=== PATIENT | male | born 1935 | race Caucasian/White ===

== ENCOUNTER 2018-04-14 18:30 | Inpatient (IN) | payer OTHER ==
[2018-04-14 18:42] VITALS: BMI 21.9
[2018-04-14] MEDS ORDERED: DUONEB 0.5 MG/3 MG NEB ONE (19:50)
--- NOTE | 2018-04-14 19:51 | DR.GENAD ---
HPI - PCP Primary Care Physician: VIOLA - Complaint/Symptoms Chief Complaint Doctors Comments: Patient presented to the ED for evalaution of dyspnea of acute onset. He is a dialysis patient. Chief Complaint:: SHORT OF BREATH - Source History Provided: Patient, Family Member - Mode of Arrival Mode of Arrival: Wheelchair - Timing Onset of Chief Complaint: 04/13/18 PMH - PMH Past Medical History: Yes Past Medical History: COPD, CVA, Depression, Dialysis, Hypertension, Renal Disease Past Surgical History: No - Family History History of Family Medical Conditions: Yes Family Medical History: [place], Heart Failure, Hypertension - Social History Does patient currently use any type of tobacco product: No Have you used tobacco products in the last 12 months: No Type of Tobacco Use: Cigarettes Does any household member use tobacco: No Alcohol Use: None Do you use any recreational Drugs:: No Lives With: Family Lives Where: Home - infectious screening In the last 2 months have you had wt loss of >10#?: NO Have you had fever, night sweats or hemotysis?: No Have you traveled outside the country in the last 6 months?: No Isolation: Standard ROS - Review of Systems Eyes: No Symptoms Reported ENTM: No Symptoms Reported Respiratoy: No Symptoms Reported Cardiovascular: No Symptoms Reported Gastrointestinal/Abdominal: No Symptoms Reported Genitourinary: No Symptoms Reported Neurological: No Symptoms Reported Musculoskeletal: No Symptoms Reported Integumentary: No Symptoms Reported Hematologic/Lymphatic: No Symptoms Reported Endocrine: No Symptoms Reported Psychiatric: No Symptoms Reported All Other Systems: Reviewed and Negative PE - Vital Signs Vitals: Temperature 101.1 F Pulse Rate 81 Respiratory Rate 20 Blood Pressure 177/79 O2 Sat by Pulse Oximetry 97 - General General Appearance: Alert, In No Apparent Distress - Head Head Exam: Normal Inspection, Atraumatic - Eyes Eye exam: Normal Appearance, PERRL, EOMI - ENT ENT Exam: Normal Exam, Normal Oropharynx External Ear Exam: Normal External Inspection TM/Canal Exam: Bilateral Normal Nose Exam: Normal Nose Exam Mouth Exam: Normal Inspection Throat Exam: Normal Inspection - Neck Neck Exam: Normal Inspection - Chest Chest Inspection: Normal Inspection - Respiratory Respiratory Exam: Prolonged Expiratory Phase Respiratory Exam: Bilateral Clear to Auscultation - Cardiovascular Cardiovascular Exam: Regular Rate, Normal Rhythm - Abdominal Exam Abdominal Exam: Normal Inspection, Normal Bowel Sounds Abdominal Tenderness: negative: RUQ, RLQ, LUQ, LLQ, Epigastrium, Suprapubic, Diffuse, Mild, Moderate, Severe, Other - Extremities Extremities Exam: Normal Inspection - Back Back Exam: Normal Inspection - Neurologic Neurological Exam: Alert, Oriented X3, CN II-XII Intact - Psychiatric Psychiatric Exam: Normal Affect - Skin Skin Exam: Warm, Dry, Intact Course - Reevaluation 1st: Improved - Consultation Called: 21:15 (Dr Gabriel agreed to admit for further evaluation) ROR - Labs Reviewed Laboratory Results Reviewed?: Yes (D Dimer 1430) Result Diagrams: 04/14/18 20:01 04/14/18 20:01 Laboratory: WBC 9.6 X10^3/uL (3.6-10.0) 04/14/18 20:01 RBC 3.33 X10^6/uL (4.7-6.0) L 04/14/18 20:01 Hgb 11.1 g/dL (13.5-18.0) L 04/14/18 20:01 Hct 31.9 % (42.0-54.0) L 04/14/18 20:01 MCV 95.8 fL (80.0-100.0) 04/14/18 20:01 MCH 33.4 pg (27.0-34.0) 04/14/18 20:01 MCHC 34.9 g/dL (33.0-35.0) 04/14/18 20:01 RDW 14.5 % (11.6-16.5) 04/14/18 20:01 Plt Count 237 X10^3/uL (150.0-450.0) 04/14/18 20:01 MPV 8.3 fL (7.4-11.0) 04/14/18 20:01 Neut % (Auto) 77.8 % (42.0-75.0) H 04/14/18 20:01 Lymph % (Auto) 10.7 % (21.0-51.0) L 04/14/18 20:01 [place] % (Auto) 9.1 % (0.0-13.0) 04/14/18 20:01 Eos % (Auto) 1.2 % (0.9-2.9) 04/14/18 20:01 Baso % (Auto) 1.2 % (0.2-1.0) H 04/14/18 20:01 Neut # (Auto) 7.5 x10^3/uL (2.2-4.8) H 04/14/18 20:01 Lymph # (Auto) 1.0 X10^3/uL (1.3-2.9) L 04/14/18 20:01 [place] # (Auto) 0.9 x10^3/uL (0.3-0.8) H 04/14/18 20:01 Eos # (Auto) 0.1 x10^3/uL (0.0-0.2) 04/14/18 20:01 Baso # (Auto) 0.1 X10^3/uL (0.0-0.1) 04/14/18 20:01 Absolute Nucleated RBC 0.0 /100WBC 04/14/18 20:01 D-Dimer 1430 ng/mL (0-400) H* 04/14/18 20:01 Sodium 137 mmol/L (136-145) 04/14/18 20:01 Corrected Sodium TNP 04/14/18 20:01 Potassium 4.7 mmol/L (3.5-5.1) 04/14/18 20:01 Chloride 102 mmol/L (98-107) 04/14/18 20:01 Carbon Dioxide 27.2 mmol/L (21-32) 04/14/18 20:01 BUN 42 mg/dL (7-18) H 04/14/18 20:01 Creatinine 5.89 mg/dL (0.70-1.30) H 04/14/18 20:01 Est GFR (MDRD) Af Amer 12 (>60) L 04/14/18 20:01 Est GFR (MDRD) Non-Af 10 (>60) L 04/14/18 20:01 Glucose 105 mg/dL (65-99) H 04/14/18 20:01 Calcium 8.2 mg/dL (8.5-10.1) L 04/14/18 20:01 Corrected Calcium TNP 04/14/18 20:01 Total Bilirubin 0.40 mg/dL (0.2-1.0) 04/14/18 20:01 AST 12 Units/L (15-37) L 04/14/18 20:01 ALT 16 Units/L (12-78) 04/14/18 20:01 Alkaline Phosphatase 75 Units/L (46-116) 04/14/18 20:01 Total Protein 7.5 g/dL (6.4-8.2) 04/14/18 20:01 Albumin 3.7 g/dL (3.4-5.0) 04/14/18 20:01 Globulin 3.8 g/dL (2.5-4.5) 04/14/18 20:01 Albumin/Globulin Ratio 1.0 Ratio (1.1-2.1) L 04/14/18 20:01 - XRAY XRAY Interpreted by: Radiologist (Chest: No acute cardiopulmonary abnormality) - Diagnosis Discharge Problem: COPD (chronic obstructive pulmonary disease) Qualifiers: COPD type: COPD with acute exacerbation Qualified Code(s): J44.1 - Chronic obstructive pulmonary disease with (acute) exacerbation Renal failure Qualifiers: Renal failure chronicity: chronic Chronic kidney disease stage: stage 5, not on chronic dialysis Qualified Code(s): N18.5 - Chronic kidney disease, stage 5 - Discharge Plan Condition: Stable - Follow ups/Referrals Follow ups/Referrals: NFD,None [Primary Care Provider] - 3 days - Instructions
[2018-04-14 20:14] LABS: BASOPHILS # (AUTO) 0.1 X10^3/uL (0.0-0.1); BASOPHILS % (AUTO) 1.2 % (0.2-1.0); EOSINOPHILS # (AUTO) 0.1 x10^3/uL (0.0-0.2); EOSINOPHILS % (AUTO) 1.2 % (0.9-2.9); HEMATOCRIT 31.9 % (42.0-54.0); HEMOGLOBIN 11.1 g/dL (13.5-18.0); LYMPHOCYTES % (AUTO) 10.7 % (21.0-51.0); MEAN CORPUSCULAR HEMOGLOBIN 33.4 pg (27.0-34.0); MEAN CORPUSCULAR HGB CONC 34.9 g/dL (33.0-35.0); MEAN CORPUSCULAR VOLUME 95.8 fL (80.0-100.0); MEAN PLATELET VOLUME 8.3 fL (7.4-11.0); MONOCYTES # (AUTO) 0.9 x10^3/uL (0.3-0.8); MONOCYTES % (AUTO) 9.1 % (0.0-13.0); NEUTROPHILS # (AUTO) 7.5 x10^3/uL (2.2-4.8); NEUTROPHILS % (AUTO) 77.8 % (42.0-75.0); PLATELET COUNT 237 X10^3/uL (150.0-450.0); RED BLOOD COUNT 3.33 X10^6/uL (4.7-6.0); RED CELL DISTRIBUTION WIDTH 14.5 % (11.6-16.5); WHITE BLOOD COUNT 9.6 X10^3/uL (3.6-10.0)
[2018-04-14 20:23] LABS: ALANINE AMINOTRANSFERASE 16 Units/L (12-78); ALBUMIN 3.7 g/dL (3.4-5.0); ALKALINE PHOSPHATASE 75 Units/L (46-116); ASPARTATE AMINO TRANSFERASE 12 Units/L (15-37); BLOOD UREA NITROGEN 42 mg/dL (7-18); CALCIUM 8.2 mg/dL (8.5-10.1); CARBON DIOXIDE 27.2 mmol/L (21-32); CHLORIDE 102 mmol/L (98-107); CREATININE 5.89 mg/dL (0.70-1.30); SODIUM 137 mmol/L (136-145); TOTAL PROTEIN 7.5 g/dL (6.4-8.2); eGFR BLACK RACES 12 (>60); eGFR NON BLACK RACES 10 (>60)
--- NOTE | 2018-04-14 20:25 | RAD ---
AP Chest Indication: shortness of breath Comparison: none available Findings: The trachea is midline. The cardiac silhouette is unremarkable. The lungs are clear without focal i nfiltrate or effusion. The bony thorax is unremarkable. IMPRESSION: 1. No acute cardiopulmonary abnormality. Reported By:
[2018-04-14] MEDS ORDERED: SOLU-Medrol 125 MG VIAL IVP ONE (22:32)
[2018-04-14] MEDS ORDERED: NS 100 ML IV + SPIKE MINIBAG* 100 ML IV ONE (22:44)
[2018-04-14] MEDS ORDERED: FORTAZ or TAZICEF INJ ONE (22:44)
[2018-04-14] MEDS ORDERED: FORTAZ or TAZICEF INJ 1 GM in NS 50 ML IV + SPIKE MINIBAG* 50 ML IV SCH (23:00)
[2018-04-15] MEDS: DUONEB 0.5 MG/3 MG NEB SCH ×6 (01:01→21:10)
[2018-04-15] MEDS ORDERED: DUONEB 0.5 MG/3 MG ONE (05:05)
[2018-04-15 06:23] LABS: BASOPHILS % (AUTO) 0.1 % (0.2-1.0); HEMOGLOBIN 10.6 g/dL (13.5-18.0); LYMPHOCYTES # (AUTO) 0.4 X10^3/uL (1.3-2.9); LYMPHOCYTES % (AUTO) 4.7 % (21.0-51.0); MEAN CORPUSCULAR HEMOGLOBIN 33.8 pg (27.0-34.0); MEAN CORPUSCULAR HGB CONC 35.3 g/dL (33.0-35.0); MEAN CORPUSCULAR VOLUME 95.9 fL (80.0-100.0); MEAN PLATELET VOLUME 8.4 fL (7.4-11.0); MONOCYTES # (AUTO) 0.1 x10^3/uL (0.3-0.8); MONOCYTES % (AUTO) 0.9 % (0.0-13.0); NEUTROPHILS # (AUTO) 7.3 x10^3/uL (2.2-4.8); NEUTROPHILS % (AUTO) 94.3 % (42.0-75.0); PLATELET COUNT 201 X10^3/uL (150.0-450.0); RED BLOOD COUNT 3.13 X10^6/uL (4.7-6.0); RED CELL DISTRIBUTION WIDTH 14.4 % (11.6-16.5); WHITE BLOOD COUNT 7.7 X10^3/uL (3.6-10.0)
[2018-04-15 06:49] LABS: ALBUMIN 3.2 g/dL (3.4-5.0); CALCIUM 8.1 mg/dL (8.5-10.1); CARBON DIOXIDE 24.9 mmol/L (21-32); COR CA(FOR HYPOALB) 8.7 mg/dL (8.5-10.1); CREATININE 6.35 mg/dL (0.70-1.30); TOTAL PROTEIN 6.9 g/dL (6.4-8.2)
[2018-04-15 06:56] LABS: HYPOCHROMASIA SLIGHT; PLATELET MORPHOLOGY COMMENT NORMAL (NORMAL)
[2018-04-15] MEDS ORDERED: PROVENTIL NEB TX 0.083% 2.5MG/ 3ML NEB PRN (08:29)
[2018-04-15] MEDS: ASPIRIN EC 81 MG PO SCH (10:35)
[2018-04-15] MEDS: HYZAAR 50/12.5 MG PO SCH (10:35)
[2018-04-15] MEDS: NORVASC TAB 10 MG PO SCH (10:35)
--- NOTE | 2018-04-15 10:35 | RAD ---
HISTORY: Shortness of breath Study: Chest PA and lateral Comparison: 04/14/2018 Findings: The heart is within normal limits in size. The sandee are normal. The lungs are hyperinflated but free of acute alveolar infiltrates. No pleural effusions are identified. Mild interstitial lung changes ar e present. The bony thorax is unremarkable. IMPRESSION: Lungs hyperinflated but free of acute alveolar infiltrates Mild interstitial lung changes Reported By:
[2018-04-15] MEDS: ZOLOFT PO SCH (10:36)
--- NOTE | 2018-04-15 10:47 | NM ---
HISTORY: Shortness of breath Study: Ventilation-perfusion lung scan Comparison: Chest x-ray same date Technique: Ventilation scan was carried out using 30.4 mCi technetium 99 M DTPA aerosol. Perfusion sc an was carried out using intravenous injection of 5.4 mCi technetium 99 MAA. Findings: Ventilation scan demonstrated scattered nonsegmental ventilation defects. No segmental or lobar venti lation defects were identified. Perfusion scan demonstrated symmetric profusion with no significant s ubsegmental, segmental, or lobar perfusion defects. The probability of acute pulmonary thromboembolic disease is low. IMPRESSION: Low probability acute pulmonary thromboembolic disease Reported By:
[2018-04-15] MEDS: PATIENT'S HOME MEDICATION (Sevelamer Carbonate [Renvela Tablet] 800 MG) PO SCH ×2 (14:06→22:21)
[2018-04-15] MEDS ORDERED: FORTAZ OR TAZICEF IV SCH (21:00)
[2018-04-15] MEDS ORDERED: NS IV SCH (21:00)
[2018-04-15] MEDS ORDERED: SPIKE MINIBAG IV SCH (21:00)
[2018-04-16] MEDS: DUONEB 0.5 MG/3 MG NEB SCH ×2 (01:01→05:22)
[2018-04-16] MEDS ORDERED: DUONEB 0.5 MG/3 MG NEB PRN (05:28)
[2018-04-16] MEDS: PATIENT'S HOME MEDICATION (Sevelamer Carbonate [Renvela Tablet] 800 MG) PO SCH (05:42)
[2018-04-16 07:33] LABS: ALANINE AMINOTRANSFERASE 15 Units/L (12-78); ALKALINE PHOSPHATASE 54 Units/L (46-116); ASPARTATE AMINO TRANSFERASE 21 Units/L (15-37); BLOOD UREA NITROGEN 45 mg/dL (7-18); CALCIUM 7.6 mg/dL (8.5-10.1); CARBON DIOXIDE 28.7 mmol/L (21-32); CHLORIDE 105 mmol/L (98-107); COR CA(FOR HYPOALB) 8.4 mg/dL (8.5-10.1); CREATININE 5.33 mg/dL (0.70-1.30); SODIUM 145 mmol/L (136-145); TOTAL PROTEIN 6.4 g/dL (6.4-8.2); eGFR BLACK RACES 13 (>60); eGFR NON BLACK RACES 11 (>60)
[2018-04-16 08:05] LABS: BASOPHILS % (AUTO) 0.2 % (0.2-1.0); HEMATOCRIT 26.9 % (42.0-54.0); HEMOGLOBIN 9.4 g/dL (13.5-18.0); LYMPHOCYTES # (AUTO) 0.9 X10^3/uL (1.3-2.9); LYMPHOCYTES % (AUTO) 8.1 % (21.0-51.0); MEAN CORPUSCULAR HEMOGLOBIN 33.5 pg (27.0-34.0); MEAN CORPUSCULAR HGB CONC 34.8 g/dL (33.0-35.0); MEAN CORPUSCULAR VOLUME 96.2 fL (80.0-100.0); MONOCYTES # (AUTO) 0.9 x10^3/uL (0.3-0.8); MONOCYTES % (AUTO) 8.3 % (0.0-13.0); NEUTROPHILS # (AUTO) 9.4 x10^3/uL (2.2-4.8); NEUTROPHILS % (AUTO) 83.4 % (42.0-75.0); PLATELET COUNT 202 X10^3/uL (150.0-450.0); RED CELL DISTRIBUTION WIDTH 14.8 % (11.6-16.5); WHITE BLOOD COUNT 11.2 X10^3/uL (3.6-10.0)
[2018-04-16 08:38] VITALS: BP 151/55
[2018-04-16] MEDS: ASPIRIN EC 81 MG PO SCH (08:40)
[2018-04-16] MEDS: NORVASC TAB 10 MG PO SCH (08:41)
[2018-04-16] MEDS: HYZAAR 50/12.5 MG PO SCH (08:41)
[2018-04-16] MEDS: ZOLOFT PO SCH (08:41)
--- NOTE | 2018-04-18 00:21 | DR.H&P ---
H&P - History & Physical for Day of: H&P Date: 04/14/18 - Chief Complaint Chief Complaint: SHORT OF BREATH - Allergies Allergies/Adverse Reactions: Allergies Allergy/AdvReac Type Severity Reaction Status Date / Time No Known Drug Allergies Allergy Verified 04/15/18 00:19 - History of Present Illness History of Present Illness: IS A 82 YEAR OLD PATIENT OF WHO PRESENTED TO THE EMERGENCY ROOM WITH COMPLAINTS OF SHORTNESS OF BREATH. PATIENT REPORTS THAT SYMPTOMS BEGAN YESTERDAY AND HAS PROGRESSIVELY GOTTEN WORSE. HE REPORTS A HISTORY OF RENAL FAILURE WITH THE NEED FOR DIALYSIS AND COPD. ON ARRIVAL, VITALS WERE 101.1, 81, 20, 97%, 177/79. LABS WERE OBTAINED. ABNORMAL LAB VALUES INCLUDE THE FOLLOWING: RBC 3.33, HGB 11.1, HCT 31.9, D DIMER 1430, BUN 42, CREATININE 5.89, GLUCOSE 105, CALCIUM 8.2, AST 12. BLOOD CULTURES PENDING. A CHEST XRAY WAS OBTAINED AND REVEALED NO ACUTE CARDIOPULMONARY ABNORMALITY. EKG REVELED SINUS RHYTHM WITH HR 67. PATIENT WAS GIVEN A DUONEB X 1 AND SOLU-MEDROL 125MG IV X 1 WITH NO IMPROVEMENT IN SYMPTOMS. HE WAS ADMITTED TO THE HOSPITAL FOR FURTHER EVALUATION AND TREATMENT. WE PLAN TO OBTAIN A VQ SCAN IN THE MORNING. HE WAS STARTED ON FORTAZ 1GM IV Q8H , DUONEBS Q4H, AND HOME MEDICATIONS WERE RESUMED. WE PLANNED TO FOLLOW UP WITH AM LABS AND CONTINUE TO MONTIOR PATIENT. - Past Medical History Past Medical History: COPD, CVA, Depression, Dialysis, Hypertension, Renal Disease - Family History Family Medical History: [place], Heart Failure - Social History Does patient currently use any type of tobacco product: No Have you used tobacco products in the last 12 months: No Type of Tobacco Use: Cigarettes How many years tobacco product used: 60 Does any household member use tobacco: No Alcohol Use: None Drug Use: None - Medications Home Medications: Albuterol Neb 2.5MG/ 3Ml [ALBUTEROL NEB 2.5MG/ 3ML *] 1 inh NEB Q4H PRN [History Confirmed 04/15/18] Amlodipine Besylate 10 mg PO DAILY 04/14/18 [History Confirmed 04/14/18] Aspirin [Adult Low Dose Aspirin EC] 81 mg PO DAILY 04/14/18 [History Confirmed 04/15/18] Losartan Potassium & Hydrochlo [HYZAAR 50/12.5 MG *] 0.5 tab PO DAILY 04/14/18 [ History Confirmed 04/14/18] Sertraline HCl [Zoloft 25 mg] 1 tab PO QAM 04/14/18 [History Confirmed 04/14/18] Sevelamer Carbonate [Renvela tablet] 800 mg PO TID 04/14/18 [History Confirmed 04/15/18] - Review of Systems Constitutional: Weakness Eyes: No Symptoms Reported ENT: No Symptoms Reported Respiratory: Shortness of Breath, SOB with Excertion. denies: Hemoptysis, Sputum, Wheezing Cardiovascular: No Symptoms Reported Gastrointestinal: No Symptoms Reported Genitourinary: No Symptoms Reported Musculoskeletal: No Symptoms Reported Skin: No Symptoms Reported Neurological: No Symptoms Reported - Physical Exam Vital Signs: Temperature 98.1 F Pulse Rate [Right] 85 Pulse Rate 90 Respiratory Rate 18 Blood Pressure [Right Arm] 151/55 Blood Pressure 177/79 O2 Sat by Pulse Oximetry 100 Oriented: Normal Eyes: Normal Ear: Normal Nose: Normal Throat: Normal Respiratory: Diminished Throughout Cardiovascular: Normal : Normal Auscultation: Bowel Sounds: Normal Palpation: Normal Tenderness: Normal Skin: Normal Musculoskeletal: Normal Psychiatric: Normal Mood Description: Calm Affect: Normal Speech Pattern: Clear - Assessment/Plan (1) Shortness of breath Status: Acute (2) COPD (chronic obstructive pulmonary disease) Qualifiers: COPD type: COPD with acute exacerbation Qualified Code(s): J44.1 - Chronic obstructive pulmonary disease with (acute) exacerbation Status: Acute (3) Renal failure Qualifiers: Renal failure chronicity: chronic Chronic kidney disease stage: stage 5, not on chronic dialysis Qualified Code(s): N18.5 - Chronic kidney disease, stage 5 Status: Acute
== END 2018-04-16 08:50 | disposition home health service (06) | DRG 191 ==
LOC: ER 19:13 → OBS 22:30
PROVIDERS: ADMIT Internal Medicine; ATTEND Internal Medicine
DX: J44.1 Chronic obstructive pulmonary disease with (acute) exacerbation (principal); R06.02 Shortness of breath; Z99.2 Dependence on renal dialysis; N18.5 Chronic kidney disease, stage 5; R94.31 Abnormal electrocardiogram [ECG] [EKG]; Z66 Do not resuscitate; R79.1 Abnormal coagulation profile; R94.4 Abnormal results of kidney function studies
CPT/HCPCS: 36415; 71045; 71046; 78582; 80053; 85025; 85378; 87040; 93005; 94640; 94760; 96365; 96374; 99284; A4222; A9540; A9567; J0713; J2930; J7620

== ENCOUNTER 2019-01-02 18:59 | Inpatient (IN) ==
[2019-01-02] MEDS ORDERED: DUONEB 0.5 MG/3 MG ONE (19:07)
[2019-01-02 19:21] LABS: ABG BASE EXCESS 9.2 mmol/L (-2.0-2.0); ABG HCO3 32.6 mmol/L (22-26)
[2019-01-02 19:22] LABS: ABG ALLEN TEST POS
[2019-01-02] MEDS ORDERED: DUONEB 0.5 MG/3 MG NEB ONE (19:22)
[2019-01-02] MEDS ORDERED: SOLU-Medrol 125 MG VIAL ONE (19:40)
[2019-01-02] MEDS ORDERED: SOLU-Medrol 125 MG VIAL IVP ONE (19:40)
[2019-01-02 19:44] LABS: BASOPHILS # (AUTO) 0.1 X10^3/uL (0.0-0.1); BASOPHILS % (AUTO) 0.6 % (0.2-1.0); EOSINOPHILS % (AUTO) 0.1 % (0.9-2.9); HEMATOCRIT 32.4 % (42.0-54.0); HEMOGLOBIN 11.2 g/dL (13.5-18.0); LYMPHOCYTES # (AUTO) 0.5 X10^3/uL (1.3-2.9); LYMPHOCYTES % (AUTO) 3.9 % (21.0-51.0); MEAN CORPUSCULAR HEMOGLOBIN 33.3 pg (27.0-34.0); MEAN CORPUSCULAR HGB CONC 34.5 g/dL (33.0-35.0); MEAN CORPUSCULAR VOLUME 96.5 fL (80.0-100.0); MEAN PLATELET VOLUME 7.8 fL (7.4-11.0); MONOCYTES # (AUTO) 1.3 x10^3/uL (0.3-0.8); MONOCYTES % (AUTO) 10.6 % (0.0-13.0); NEUTROPHILS # (AUTO) 10.7 x10^3/uL (2.2-4.8); NEUTROPHILS % (AUTO) 84.8 % (42.0-75.0); PLATELET COUNT 322 X10^3/uL (150.0-450.0); RED BLOOD COUNT 3.35 X10^6/uL (4.7-6.0); RED CELL DISTRIBUTION WIDTH 14.9 % (11.6-16.5); WHITE BLOOD COUNT 12.6 X10^3/uL (3.6-10.0)
[2019-01-02 19:54] LABS: ALBUMIN 3.2 g/dL (3.4-5.0); CALCIUM 8.9 mg/dL (8.5-10.1); CARBON DIOXIDE 30.9 mmol/L (21-32); COR CA(FOR HYPOALB) 9.5 mg/dL (8.5-10.1); CREATININE 3.91 mg/dL (0.70-1.30); TOTAL PROTEIN 7.7 g/dL (6.4-8.2)
--- NOTE | 2019-01-02 20:28 | RAD ---
Chest 1 frontal view Clinical indication: Shortness of breath, chest congestion and cough Findings: The study is compared to the exam of 04/15/2018. The lungs are hyperexpanded with flattened diaphragmatic contours. Interval development of bilateral interstitial infiltrates are observed involving the bilateral lower lung zones, most evident within the right lower lobe. There is associated with bronchial wall thickening. The heart size is within normal limits. Pulmonary artery shadows are enlarged. Impression: Interstitial bronchopneumonia pattern. This may be associated with a viral or atypical organism infection. Radiographic follow-up recommended until clear. Radiographic features of chronic obstructive pulmonary disease. Enlarged pulmonary artery shadows may be associated with pulmonary artery hypertension. Reported By:
[2019-01-02] MEDS ORDERED: ROCEPHIN VIAL 1 GRAM IVP ONE (21:47)
[2019-01-02] MEDS ORDERED: ROCEPHIN VIAL 1 GRAM ONE (21:54)
--- NOTE | 2019-01-02 22:02 | DR.SOBA ---
HPI Time Seen Time Seen by Provider: 01/02/19 19:12 Primary Care Physician Primary Care Physician: jess Complaints Chief Complaint:: PT HAVING SOB CONGESTION COUGHING Source History Provided: Patient Mode of Arrival Mode of Arrival: Wheelchair Timing Onset of Chief Complaint: 01/01/19 PMH PMH Past Medical History: Yes Past Medical History: COPD, CVA, Depression, Dialysis, Hypertension and Renal Disease Past Surgical History: Yes Past Surgical History Comment: AV SHUNT IN LT UPPER ARM EYE SURGERY Family History History of Family Medical Conditions: Yes Family Medical History: [place] and Heart Failure Social History Does patient currently use any type of tobacco product: No Have you used tobacco products in the last 12 months: No Does any household member use tobacco: No Alcohol Use: None Do you use any recreational Drugs:: No Lives With: Family Lives Where: Home infectious screening In the last 2 months have you had wt loss of >10#?: NO Have you had fever, night sweats or hemotysis?: No Have you traveled outside the country in the last 6 months?: No Isolation: Standard PE Vital Signs Vitals: Temperature 98.9 F Pulse Rate [Right Brachial] 68 Pulse Rate 88 Respiratory Rate 26 Blood Pressure [Right Arm] 165/70 Blood Pressure 213/86 O2 Sat by Pulse Oximetry 91 General Limitations: No Limitations General Appearance: Alert and In No Apparent Distress Head Head Exam: Normal Inspection, Atraumatic and Normocephalic Eyes Eye exam: Normal Appearance, PERRL and EOMI ENT ENT Exam: Normal Exam and Normal Oropharynx Neck Neck Exam: Normal Inspection and Full ROM Chest Chest Inspection: Normal Inspection and Symmetric Chest Wall Rise Respiratory Respiratory Exam: Normal Lung Sounds Bilat Respiratory Exam: Bilateral: Wheezing (superior lobes ) Cardiovascular Cardiovascular Exam: Regular Rate Abdominal Exam Abdominal Exam: Normal Inspection and Soft Extremities Extremities Exam: Normal Inspection and Full ROM Back Back Exam: Normal Inspection Neurologic Neurological Exam: Alert, Oriented X3 and CN II-XII Intact Psychiatric Psychiatric Exam: Normal Affect and Normal Mood Skin Skin Exam: Warm, Dry, Intact and Normal Color COURSE Consultation Called: 22:55 Consultation Comments: Dr. Huff agreed to admit for pneumonia protocol ROR Labs Reviewed Laboratory Results Reviewed?: Yes Result Diagrams: 01/02/19 19:25 01/02/19 19:25 Laboratory: 01/02/19 19:40 Sputum - Expectorated Sputum - Final WBC 12.6 X10^3/uL (3.6-10.0) H 01/02/19 19: RBC 3.35 X10^6/uL (4.7-6.0) L 01/02/19: Hgb 11.2 g/dL (13.5-18.0) L 01/02/19: Hct 32.4 % (42.0-54.0) L 01/02/19: MCV 96.5 fL (80.0-100.0) 01/02/19: MCH 33.3 pg (27.0-34.0) 01/02/19: MCHC 34.5 g/dL (33.0-35.0) 01/02/19: RDW 14.9 % (11.6-16.5) 01/02/19: Plt Count 322 X10^3/uL (150.0-450.0) 01/02/19: MPV 7.8 fL (7.4-11.0) 01/02/19: Neut % (Auto) 84.8 % (42.0-75.0) H 01/02/19: Lymph % (Auto) 3.9 % (21.0-51.0) L 01/02/19: [place] % (Auto) 10.6 % (0.0-13.0) 01/02/19: Eos % (Auto) 0.1 % (0.9-2.9) L 01/02/19: Baso % (Auto) 0.6 % (0.2-1.0) 01/02/19: Neut # (Auto) 10.7 x10^3/uL (2.2-4.8) H 01/02/19: Lymph # (Auto) 0.5 X10^3/uL (1.3-2.9) L 01/02/19: [place] # (Auto) 1.3 x10^3/uL (0.3-0.8) H 01/02/19: Eos # (Auto) 0.0 x10^3/uL (0.0-0.2) 02/04/19 19:25 Baso # (Auto) 0.1 X10^3/uL (0.0-0.1) 01/02/19 19:25 Absolute Nucleated RBC 0.0 /100WBC 01/02/19 19:25 D-Dimer 1410 ng/mL (0-400) H* 01/02/19 19:25 Sample Site Rrad 01/02/19 19:11 ABG pH 7.530 (7.35-7.45) H 01/02/19 19:11 ABG pCO2 39.0 mmHg (35.0-45.0) 01/02/19 19:11 ABG pO2 62.0 mmHg (80.0-100.0) L 01/02/19 19:11 ABG HCO3 32.6 mmol/L (22-26) H* 01/02/19 19:11 ABG O2 Saturation 94.0 % (90-100) 01/02/19 19:11 ABG Base Excess 9.2 mmol/L (-2.0-2.0) H 01/02/19 19:11 [place] Test Pos 01/02/19 19:11 A-a Gradient 89.0 mmHg 01/02/19 19:11 FiO2 28.0 01/02/19 19:11 Blood Gas Comments Kaley abg well-mtf 01/02/19 19:11 Sodium 139 mmol/L (136-145) 01/02/19 19:25 Corrected Sodium 139 mmol/L (136-145) 01/02/19 19:25 Potassium 3.4 mmol/L (3.5-5.1) L 01/02/19 19:25 Chloride 98 mmol/L (98-107) 01/02/19 19:25 Carbon Dioxide 30.9 mmol/L (21-32) 01/02/19 19:25 BUN 24 mg/dL (7-18) H 01/02/19 19:25 Creatinine 3.91 mg/dL (0.70-1.30) H 01/02/19 19:25 Est GFR (MDRD) Af Amer 19 (>60) L 01/02/19 19:25 Est GFR (MDRD) Non-Af 16 (>60) L 01/02/19 19:25 Glucose 115 mg/dL (65-99) H 01/02/19 19:25 Calcium 8.9 mg/dL (8.5-10.1) 01/02/19 19:25 Corrected Calcium 9.5 mg/dL (8.5-10.1) 01/02/19 19:25 Total Bilirubin 0.50 mg/dL (0.2-1.0) 01/02/19 19:25 AST 18 Units/L (15-37) 01/02/19 19:25 ALT 17 Units/L (12-78) 01/02/19 19:25 Alkaline Phosphatase 91 Units/L (46-116) 01/02/19 19:25 B-Natriuretic Peptide 1230 pg/mL (0-79) H* 01/02/19 19:25 Total Protein 7.7 g/dL (6.4-8.2) 01/02/19 19:25 Albumin 3.2 g/dL (3.4-5.0) L 01/02/19 19:25 Globulin 4.5 g/dL (2.5-4.5) 01/02/19 19:25 Albumin/Globulin Ratio 0.7 Ratio (1.1-2.1) L 01/02/19 19:25 Other Results Comments: The study is compared to the exam of 04/15/18. The lungs are hyper-expanded with flattened diaphragmatic contours. Interval development of bilateral interstitial infiltrates are observed involving the bilateral lower lung zones, most evident within the right iower lobe. There is associated with bronchial wall thickening. The heart size is within normal limits. Pulmonary artery shadows are enlarged. Impression: Interstitial bronchopneumonia pattern. This may be associated with a viral or atypical organism infection. Radiographic follow up recommended until clear. 2. COPD. 3. Enlarged pulmonary artery shows may be associated with pulmonary artery hypertension. XRAY XRAY Interpreted by: Radiologist Diagnosis Discharge Problem: Bronchopneumonia, Pulmonary hypertension COPD (chronic obstructive pulmonary disease) Qualifiers: COPD type: COPD with acute lower respiratory infection Qualified Code(s): J44.0 - Chronic obstructive pulmonary disease with acute lower respiratory infection Renal failure Qualifiers: Renal failure chronicity: unspecified chronicity Qualified Code(s): N19 - Unspecified kidney failure ADDITIONAL NOTES Additional Notes Additional Notes: Patient admitted for further evaluation and treatment.
[2019-01-02] MEDS ORDERED: TUSSIONEX PENNKINETIC SUSP PO PRN (22:07)
[2019-01-02] MEDS ORDERED: TYGACIL 50 MG VIAL 100 MG in NS 100 ML IV 100 ML IV ONE (22:07)
[2019-01-02] MEDS ORDERED: NS 250 ML IV 250 ML IV ONE (22:47)
[2019-01-02 23:28] VITALS: BMI 20.7
[2019-01-03 05:22] LABS: BASOPHILS % (AUTO) 0.3 % (0.2-1.0); HEMOGLOBIN 10.5 g/dL (13.5-18.0); LYMPHOCYTES # (AUTO) 0.3 X10^3/uL (1.3-2.9); LYMPHOCYTES % (AUTO) 3.1 % (21.0-51.0); MEAN CORPUSCULAR HEMOGLOBIN 33.3 pg (27.0-34.0); MEAN CORPUSCULAR HGB CONC 33.9 g/dL (33.0-35.0); MEAN CORPUSCULAR VOLUME 98.4 fL (80.0-100.0); MONOCYTES # (AUTO) 0.3 x10^3/uL (0.3-0.8); MONOCYTES % (AUTO) 2.8 % (0.0-13.0); NEUTROPHILS # (AUTO) 10.3 x10^3/uL (2.2-4.8); NEUTROPHILS % (AUTO) 93.8 % (42.0-75.0); PLATELET COUNT 296 X10^3/uL (150.0-450.0); RED BLOOD COUNT 3.15 X10^6/uL (4.7-6.0); RED CELL DISTRIBUTION WIDTH 15.1 % (11.6-16.5)
[2019-01-03 05:43] LABS: BAND NEUTROPHILS % 3 % (0-10); PLATELET MORPHOLOGY COMMENT NORMAL (NORMAL)
[2019-01-03 07:33] LABS: ALBUMIN 2.7 g/dL (3.4-5.0); CALCIUM 8.9 mg/dL (8.5-10.1); CARBON DIOXIDE 27.7 mmol/L (21-32); COR CA(FOR HYPOALB) 9.9 mg/dL (8.5-10.1); CREATININE 4.67 mg/dL (0.70-1.30)
[2019-01-03] MEDS ORDERED: NS 250 ML IV 0 ML IV ONE (08:51)
[2019-01-03] MEDS: DUONEB 0.5 MG/3 MG NEB SCH ×4 (08:58→20:48)
[2019-01-03] MEDS: ROBITUSSIN DM PO SCH ×4 (09:30→20:51)
[2019-01-03] MEDS: ASPIRIN EC 81 MG PO SCH (09:31)
[2019-01-03] MEDS: NORVASC TAB 10 MG PO SCH (09:31)
[2019-01-03] MEDS: ZOLOFT PO SCH (09:31)
[2019-01-03] MEDS: TYGACIL 50 MG VIAL 50 MG in NS 100 ML IV 100 ML IV SCH ×2 (09:32→20:52)
--- NOTE | 2019-01-03 11:14 | NM ---
HISTORY: Elevated D-dimer and shortness of breath. Study: Nuclear Medicine Ventilation Perfusion Study Comparison: Chest x-ray dated January 02, 2019. Technique: After the administration of 5.6 mCi of technetium 99m MAA followed by inhalation of 30.3 mCi of technetium 99m DTPA, anterior, posterior, and lateral perfusion and ventilation images were submitted. Findings: Multiple moderate to large matched ventilation/perfusion defects are seen throughout the lungs likely representing patient's known history of chronic emphysematous changes. However, there is a large matched right lower lobe ventilation/perfusion defect that correlates with a matching right lower lobe radiographic finding. This is consistent with a triple match. IMPRESSION: Intermediate probability V/Q scan. Reported By:
[2019-01-04 05:16] LABS: BASOPHILS % (AUTO) 0.2 % (0.2-1.0); HEMATOCRIT 29.6 % (42.0-54.0); HEMOGLOBIN 10.2 g/dL (13.5-18.0); LYMPHOCYTES # (AUTO) 0.7 X10^3/uL (1.3-2.9); LYMPHOCYTES % (AUTO) 4.1 % (21.0-51.0); MEAN CORPUSCULAR HEMOGLOBIN 33.5 pg (27.0-34.0); MEAN CORPUSCULAR HGB CONC 34.5 g/dL (33.0-35.0); MEAN CORPUSCULAR VOLUME 97.3 fL (80.0-100.0); MONOCYTES # (AUTO) 1.4 x10^3/uL (0.3-0.8); NEUTROPHILS # (AUTO) 14.9 x10^3/uL (2.2-4.8); NEUTROPHILS % (AUTO) 87.7 % (42.0-75.0); PLATELET COUNT 316 X10^3/uL (150.0-450.0); RED BLOOD COUNT 3.04 X10^6/uL (4.7-6.0); RED CELL DISTRIBUTION WIDTH 15.1 % (11.6-16.5); WHITE BLOOD COUNT 16.9 X10^3/uL (3.6-10.0)
[2019-01-04 05:20] LABS: BLOOD UREA NITROGEN 75 mg/dL (7-18); CALCIUM 9.1 mg/dL (8.5-10.1); CARBON DIOXIDE 23.7 mmol/L (21-32); CHLORIDE 97 mmol/L (98-107); CREATININE 6.07 mg/dL (0.70-1.30); SODIUM 134 mmol/L (136-145); eGFR NON BLACK RACES 9 (>60)
--- NOTE | 2019-01-04 06:18 | RAD ---
History: Shortness of breath Study: Portable AP chest Comparison: January 02 Findings: The heart remains enlarged as before. The lungs are hyperinflated. There are diffuse increased interstitial lung markings. Interstitial markings however are overall increased since examination of April 14, 2018. [place] B-lines are suggested at the right lung base. There is no obvious effusion. Impression: 1. Mild cardiomegaly and probable COPD 2. Increased interstitial markings that may represent interstitial edema or a pneumonitis. Reported By:
[2019-01-04] MEDS ORDERED: PATIENT'S HOME MEDICATION PO SCH (07:00)
[2019-01-04] MEDS: ROBITUSSIN DM PO SCH (08:42)
[2019-01-04] MEDS: ZOLOFT PO SCH (08:43)
[2019-01-04] MEDS: ASPIRIN EC 81 MG PO SCH (08:43)
[2019-01-04] MEDS: TYGACIL 50 MG VIAL 50 MG in NS 100 ML IV 100 ML IV SCH (08:43)
[2019-01-04] MEDS: NORVASC TAB 10 MG PO SCH (08:43)
[2019-01-04] MEDS: DUONEB 0.5 MG/3 MG NEB SCH (08:58)
[2019-01-04 09:52] VITALS: BP 177/78
== END 2019-01-04 10:55 | disposition home or self-care (01) | DRG 178 ==
LOC: ER 18:59 → MED/SURG 22:02
PROVIDERS: ADMIT Obstetrics & Gynecology Obstetrics; ATTEND Obstetrics & Gynecology Obstetrics
DX: I27.20 Pulmonary hypertension, unspecified; R06.02 Shortness of breath; J44.0 Chronic obstructive pulmonary disease with (acute) lower respiratory infection; J44.9 Chronic obstructive pulmonary disease, unspecified; I10 Essential (primary) hypertension; Z99.2 Dependence on renal dialysis; J15.5 Pneumonia due to Escherichia coli
CPT/HCPCS: 36415; 36600; 71010; 71045; 78582; 80048; 80053; 82803; 83880; 85025; 85378; 87040; 87070; 87077; 87186; 87205; 87502; 94640; 94760; 96365; 96374; 96375; 97162; 97166; 99283; 99284; A4222; J0696; J2930; J3243; J7050; J7620

== ENCOUNTER 2020-05-31 16:06 | Inpatient (IN) ==
[2020-05-31 16:25] LABS: ABG BASE EXCESS 13.2 mmol/L (-2.0-2.0)
[2020-05-31 16:26] LABS: ABG ALLEN TEST POS; ABG HCO3 36.7 mmol/L (22-26)
[2020-05-31 17:16] LABS: BASOPHILS % (AUTO) 0.8 % (0.2-1.0); EOSINOPHILS # (AUTO) 0.1 x10^3/uL (0.0-0.2); EOSINOPHILS % (AUTO) 1.6 % (0.9-2.9); HEMATOCRIT 35.4 % (42.0-54.0); HEMOGLOBIN 11.9 g/dL (13.5-18.0); LYMPHOCYTES % (AUTO) 18.3 % (21.0-51.0); MEAN CORPUSCULAR HEMOGLOBIN 33.4 pg (27.0-34.0); MEAN CORPUSCULAR HGB CONC 33.5 g/dL (33.0-35.0); MEAN CORPUSCULAR VOLUME 99.5 fL (80.0-100.0); MEAN PLATELET VOLUME 8.2 fL (7.4-11.0); MONOCYTES # (AUTO) 0.6 x10^3/uL (0.3-0.8); MONOCYTES % (AUTO) 10.6 % (0.0-13.0); NEUTROPHILS # (AUTO) 3.8 x10^3/uL (2.2-4.8); NEUTROPHILS % (AUTO) 68.7 % (42.0-75.0); PLATELET COUNT 179 X10^3/uL (150.0-450.0); RED BLOOD COUNT 3.56 X10^6/uL (4.7-6.0); RED CELL DISTRIBUTION WIDTH 15.8 % (11.6-16.5); WHITE BLOOD COUNT 5.5 X10^3/uL (3.6-10.0)
--- NOTE | 2020-05-31 17:23 | DR.SOBA ---
HPI Time Seen Time Seen by Provider: 05/31/20 16:12 HPI Comment HPI Comment: Patient with weakness and fever for 1.5 weeks, cough chronic but worse in the last 3 days. On dialysis MWF. Given Gentamicin and an unrecalled antibiotic at the dialysis center. Complaints Chief Complaint:: PT'S FAMILY STATES PT HAS NOT BEEN FEELING VERY WELL THE PAST WEEK AND A HALF. PT WENT TO [facility] TODAY AND THEY TOLD FAMILY MEMEBER PT NEEDED TO BE CHECKED OUT BECAUSE OF HIS SOB, AND COUGHING. NOTED PT TO HAVE BILATERAL UPPER LOBE RALES. COVID-19 Coronavirus risk:travel/contact w/high risk person: No Has patient experienced Coronavirus symptoms: Yes Coronavirus symptoms experienced: Fever, Coughing and Shortness of Breath Source History Provided: Family Member Mode of Arrival Mode of Arrival: Wheelchair Timing Onset of Chief Complaint: 05/21/20 PMH PMH Past Medical History: Yes Past Medical History: Hypertension Past Surgical History: Yes Surgical History: Other Family History History of Family Medical Conditions: Yes Family Medical History: Hypertension Social History Does any household member use tobacco: No Alcohol Use: None Do you use any recreational Drugs:: No Lives With: Family Lives Where: Home Travel Risk Coronavirus risk:travel/contact w/high risk person: No Has patient experienced Coronavirus symptoms: Yes Coronavirus symptoms experienced: Fever, Coughing and Shortness of Breath Infectious screening In the last 2 months have you had wt loss of >10#?: NO Have you had fever, night sweats or hemotysis?: Yes Have you traveled outside the country in the last 6 months?: No Isolation: Droplet ROS Review of Systems Constitutional: See HPI Eyes: No Symptoms Reported ENTM: No Symptoms Reported Respiratoy: See HPI Cardiovascular: No Symptoms Reported Gastrointestinal/Abdominal: No Symptoms Reported Genitourinary: No Symptoms Reported Neurological: No Symptoms Reported Musculoskeletal: No Symptoms Reported Integumentary: No Symptoms Reported Hematologic/Lymphatic: No Symptoms Reported Endocrine: No Symptoms Reported Psychiatric: No Symptoms Reported All Other Systems: Reviewed and Negative PE Vital Signs Vitals: Temperature 100.3 F Pulse Rate 68 Respiratory Rate 23 Blood Pressure [Right Arm] 141/61 Blood Pressure 189/77 O2 Sat by Pulse Oximetry 100 General Limitations: No Limitations General Appearance: Alert and In No Apparent Distress Head Head Exam: Normal Inspection Eyes Eye exam: Normal Appearance ENT ENT Exam: Normal Exam Neck Neck Exam: Normal Inspection Chest Chest Inspection: Normal Inspection and Symmetric Chest Wall Rise Respiratory Respiratory Exam: Other (Rales b/l upper lobes); negative Accessory Muscle Use and Respiratory Distress Respiratory Exam: Bilateral: Clear to Auscultation Cardiovascular Cardiovascular Exam: Regular Rate, Normal Rhythm and Tachycardia Abdominal Exam Abdominal Exam: Normal Inspection, Normal Bowel Sounds and Soft Extremities Extremities Exam: Normal Inspection Back Back Exam: Normal Inspection Neurologic Neurological Exam: Alert Psychiatric Psychiatric Exam: Normal Affect and Normal Mood Skin Skin Exam: Warm, Dry, Intact and Normal Color COURSE Treatment Treatment: Respiration improved on O2. Chest xray personally reviewed, read negative by rads, but cannot fully r/o infiltrates. Hypoxia on ABG, with metabolic alkalosis, may be compensatory. Discussed case with Dr. Huff. Patient is high risk, will be admitted for obs, and empiric treatment of pneumonia vs. Covid 19 depending on rapid swab. Reevaluation 1st: Improved ROR Labs Reviewed Result Diagrams: 05/31/20 17:03 05/31/20 17:03 Laboratory: WBC 5.5 X10^3/uL (3.6-10.0) 05/31/20 17:03 RBC 3.56 X10^6/uL (4.7-6.0) L 05/31/20 17:03 Hgb 11.9 g/dL (13.5-18.0) L 05/31/20 17:03 Hct 35.4 % (42.0-54.0) L 05/31/20 17:03 MCV 99.5 fL (80.0-100.0) 05/31/20 17:03 MCH 33.4 pg (27.0-34.0) 05/31/20 17:03 MCHC 33.5 g/dL (33.0-35.0) 05/31/20 17:03 RDW 15.8 % (11.6-16.5) 05/31/20 17:03 Plt Count 179 X10^3/uL (150.0-450.0) 05/31/20 17:03 MPV 8.2 fL (7.4-11.0) 05/31/20 17:03 Neut % (Auto) 68.7 % (42.0-75.0) 05/31/20 17:03 Lymph % (Auto) 18.3 % (21.0-51.0) L 05/31/20 17:03 [place] % (Auto) 10.6 % (0.0-13.0) 05/31/20 17:03 Eos % (Auto) 1.6 % (0.9-2.9) 05/31/20 17:03 Baso % (Auto) 0.8 % (0.2-1.0) 05/31/20 17:03 Neut # (Auto) 3.8 x10^3/uL (2.2-4.8) 05/31/20 17:03 Lymph # (Auto) 1.0 X10^3/uL (1.3-2.9) L 05/31/20 17:03 [place] # (Auto) 0.6 x10^3/uL (0.3-0.8) 05/31/20 17:03 Eos # (Auto) 0.1 x10^3/uL (0.0-0.2) 05/31/20 17:03 Baso # (Auto) 0.0 X10^3/uL (0.0-0.1) 05/31/20 17:03 Absolute Nucleated RBC 0.1 /100WBC 05/31/20 17:03 Sample Site Rr 05/31/20 16:21 ABG pH 7.560 (7.35-7.45) H* 05/31/20 16:21 ABG pCO2 41.0 mmHg (35.0-45.0) 05/31/20 16:21 ABG pO2 64.0 mmHg (80.0-100.0) L 05/31/20 16:21 ABG HCO3 36.7 mmol/L (22-26) H* 05/31/20 16:21 ABG O2 Saturation 95.0 % (90-100) 05/31/20 16:21 ABG Base Excess 13.2 mmol/L (-2.0-2.0) H 05/31/20 16:21 [place] Test Pos 05/31/20 16:21 A-a Gradient 34.0 mmHg 05/31/20 16:21 FiO2 21.0 05/31/20 16:21 Blood Gas Comments Kaley well cb 05/31/20 16:21 Sodium 139 mmol/L (136-145) 05/31/20 17:03 Corrected Sodium TNP 05/31/20 17:03 Potassium 3.1 mmol/L (3.5-5.1) L 05/31/20 17:03 Chloride 98 mmol/L (98-107) 05/31/20 17:03 Carbon Dioxide 30.1 mmol/L (21-32) 05/31/20 17:03 BUN 8 mg/dL (7-18) 05/31/20 17:03 Creatinine 2.75 mg/dL (0.70-1.30) H 05/31/20 17:03 Est GFR (MDRD) Af Amer 28 (>60) L 05/31/20 17:03 Est GFR (MDRD) Non-Af 24 (>60) L 05/31/20 17:03 Glucose 89 mg/dL (65-99) 05/31/20 17:03 Lactic Acid 1.5 mmol/L (0.4-2.0) 05/31/20 17:03 Calcium 8.0 mg/dL (8.5-10.1) L 05/31/20 17:03 Corrected Calcium 8.8 mg/dL (8.5-10.1) 05/31/20 17:03 Magnesium 1.9 mg/dL (1.7-2.9) 05/31/20 17:03 Total Bilirubin 0.40 mg/dL (0.2-1.0) 05/31/20 17:03 AST 56 Units/L (15-37) H 05/31/20 17:03 ALT 43 Units/L (12-78) 05/31/20 17:03 Alkaline Phosphatase 117 Units/L (46-116) H 05/31/20 17:03 B-Natriuretic Peptide 791 pg/mL (0-79) H* 05/31/20 17:03 Total Protein 6.5 g/dL (6.4-8.2) 05/31/20 17:03 Albumin 3.0 g/dL (3.4-5.0) L 05/31/20 17:03 Globulin 3.5 g/dL (2.5-4.5) 05/31/20 17:03 Albumin/Globulin Ratio 0.9 Ratio (1.1-2.1) L 05/31/20 17:03 Mycoplasma pneumon IgG Negative (NEGATIVE) 05/31/20 16:25 Opioid Opioid Risk Tool Age (Kenny box if 16-45): No History of Preadolescent Sexual Abuse: No Total: 0 Total Score Risk Category: Low Risk Copyright: Yonathan ALBERTO predicting aberrant behaviors Diagnosis Discharge Problem: Acute type 1 respiratory failure, Cough Fever Qualifiers: Fever type: unspecified Qualified Code(s): R50.9 - Fever, unspecified
[2020-05-31 17:28] LABS: LACTIC ACID 1.5 mmol/L (0.4-2.0)
[2020-05-31 17:53] LABS: ALANINE AMINOTRANSFERASE 43 Units/L (12-78); ALKALINE PHOSPHATASE 117 Units/L (46-116); ASPARTATE AMINO TRANSFERASE 56 Units/L (15-37); BLOOD UREA NITROGEN 8 mg/dL (7-18); CARBON DIOXIDE 30.1 mmol/L (21-32); CHLORIDE 98 mmol/L (98-107); COR CA(FOR HYPOALB) 8.8 mg/dL (8.5-10.1); CREATININE 2.75 mg/dL (0.70-1.30); MAGNESIUM 1.9 mg/dL (1.7-2.9); SODIUM 139 mmol/L (136-145); TOTAL PROTEIN 6.5 g/dL (6.4-8.2); eGFR NON BLACK RACES 24 (>60)
[2020-05-31 17:56] LABS: MYCOPLASMA PNEUMONIAE IGM AB NEGATIVE (NEGATIVE)
--- NOTE | 2020-05-31 18:40 | RAD ---
HISTORYSOBSTUDYCHEST x-ray, 1 VIEWCOMPARISONX-ray 01/04/2019FINDINGSProbable COPD. Right upper lobe lung nodule is likely unchanged from prior study. Persistent blunting of the left CP angle could be due to scarring or pleural effusion. Heart is normal in size. Calcification is seen of the aortic arch. No pneumothorax is seen. No acute infiltrate is seen.IMPRESSIONCOPD is seen without evidence of acute infiltrate. Possible persistent small left pleural effusion or scarring at the left CP angle. Stable appearing nodular density in the right upper lobe.Electronically signed by: Franklin Pearson (May 31, 2020 18:38:57)
[2020-05-31] MEDS ORDERED: DECADRON INJ IV SCH (21:24)
[2020-05-31] MEDS ORDERED: ASCORBIC ACID INJ MULTI-DOSE VIAL IV SCH (21:24)
[2020-05-31] MEDS ORDERED: [UNRECOGNIZED DRUG - OTHER] PO SCH (21:24)
[2020-05-31] MEDS ORDERED: THIAMINE HCL INJ ONE (22:50)
[2020-05-31] MEDS: ZINC SULFATE PO SCH (23:28)
[2020-05-31] MEDS: NS 1000 ML 1,000 ML IV SCH (23:29)
[2020-05-31] MEDS: THIAMINE HCL INJ IM SCH (23:37)
[2020-05-31] MEDS ORDERED: DECADRON INJ ONE (23:42)
[2020-05-31] MEDS ORDERED: NS 100 ML IV 100 ML IV ONE (23:44)
[2020-06-01] MEDS ORDERED: REMDESIVIR (INVESTIGATIONAL DRUG GS-5734) IV SCH
[2020-06-01] MEDS: REMDESIVIR (INVESTIGATIONAL DRUG GS-5734) 100 MG in NS 250 ML IV 250 ML IV SCH (00:22)
[2020-06-01 01:10] VITALS: BMI 20.3
[2020-06-01] MEDS: CATAPRES TAB 0.1 MG PO PRN (03:18)
[2020-06-01 05:14] LABS: BASOPHILS % (AUTO) 0.3 % (0.2-1.0); EOSINOPHILS % (AUTO) 0.2 % (0.9-2.9); HEMATOCRIT 31.2 % (42.0-54.0); HEMOGLOBIN 10.6 g/dL (13.5-18.0); LYMPHOCYTES # (AUTO) 0.5 X10^3/uL (1.3-2.9); LYMPHOCYTES % (AUTO) 12.8 % (21.0-51.0); MEAN CORPUSCULAR HEMOGLOBIN 33.8 pg (27.0-34.0); MEAN CORPUSCULAR HGB CONC 34.1 g/dL (33.0-35.0); MEAN CORPUSCULAR VOLUME 99.2 fL (80.0-100.0); MEAN PLATELET VOLUME 8.1 fL (7.4-11.0); MONOCYTES # (AUTO) 0.2 x10^3/uL (0.3-0.8); MONOCYTES % (AUTO) 6.3 % (0.0-13.0); NEUTROPHILS % (AUTO) 80.4 % (42.0-75.0); PLATELET COUNT 169 X10^3/uL (150.0-450.0); RED BLOOD COUNT 3.14 X10^6/uL (4.7-6.0); RED CELL DISTRIBUTION WIDTH 15.8 % (11.6-16.5); WHITE BLOOD COUNT 3.8 X10^3/uL (3.6-10.0)
[2020-06-01 05:24] LABS: ALANINE AMINOTRANSFERASE 35 Units/L (12-78); ALBUMIN 2.6 g/dL (3.4-5.0); ALKALINE PHOSPHATASE 107 Units/L (46-116); ASPARTATE AMINO TRANSFERASE 48 Units/L (15-37); BLOOD UREA NITROGEN 13 mg/dL (7-18); CARBON DIOXIDE 33.9 mmol/L (21-32); CHLORIDE 100 mmol/L (98-107); COR CA(FOR HYPOALB) 9.1 mg/dL (8.5-10.1); CREATININE 4.05 mg/dL (0.70-1.30); MAGNESIUM 1.8 mg/dL (1.7-2.9); SODIUM 139 mmol/L (136-145); TOTAL PROTEIN 6.1 g/dL (6.4-8.2); eGFR NON BLACK RACES 15 (>60)
[2020-06-01] MEDS ORDERED: NS 100 ML IV 100 ML IV ONE ×3 (06:10→16:36)
--- NOTE | 2020-06-01 07:49 | RAD ---
HISTORYSOBSTUDYCHEST, 1 [id number]/03/2020FINDINGSStable cardiomediastinal silhouette. Stable appearance of left base with probable small effusion. Stable interstitial thickening. Stable right midlung nodule. No visible pneumothorax.IMPRESSIONNo significant interval change.Electronically signed by: Addy Avelar (Jun 01, 2020 07:47:45)
[2020-06-01] MEDS: ASCORBIC ACID INJ MULTI-DOSE VIAL IV SCH ×3 (08:24→17:00)
[2020-06-01] MEDS: LANTHANUM 1000 MG PO SCH ×3 (08:26→16:40)
[2020-06-01 08:30] LABS: ABG BASE EXCESS 9.8 mmol/L (-2.0-2.0)
[2020-06-01 08:31] LABS: ABG ALLEN TEST POS; ABG HCO3 35.4 mmol/L (22-26)
[2020-06-01] MEDS: ASPIRIN EC 81 MG PO SCH (08:44)
[2020-06-01] MEDS: ZOLOFT PO SCH (08:45)
[2020-06-01] MEDS: NORVASC TAB 10 MG PO SCH (08:45)
[2020-06-01] MEDS: THIAMINE HCL INJ IM SCH ×2 (08:45→20:22)
[2020-06-01] MEDS: ZINC SULFATE PO SCH ×2 (08:45→20:22)
[2020-06-01] MEDS ORDERED: VITAMIN D (1.25MG) PO SCH (09:00)
[2020-06-01] MEDS ORDERED: VITAMIN A PO SCH (09:00)
[2020-06-01] MEDS: DUONEB 0.5 MG/3 MG (3 mL) NEB PRN (11:53)
[2020-06-01] MEDS: LOVENOX INJ 30 MG SYR SC SCH ×2 (12:42→20:21)
[2020-06-01] MEDS ORDERED: DECADRON TAB PO ONE (15:23)
[2020-06-01] MEDS: K-DUR TAB 20 MEQ PO ONE ×2 (16:39→16:40)
[2020-06-01] MEDS: NS 1000 ML 1,000 ML IV SCH (21:21)
[2020-06-01] MEDS ORDERED: NS 100 ML IV 200 ML IV ONE (21:36)
[2020-06-02] MEDS: ASCORBIC ACID INJ MULTI-DOSE VIAL IV SCH ×4 (00:05→17:05)
[2020-06-02] MEDS: REMDESIVIR (INVESTIGATIONAL DRUG GS-5734) 100 MG in NS 250 ML IV 250 ML IV SCH (00:12)
[2020-06-02] MEDS: LANTHANUM 1000 MG PO SCH ×3 (06:09→16:08)
[2020-06-02] MEDS: NORVASC TAB 10 MG PO SCH (08:36)
[2020-06-02] MEDS: VITAMIN A PO SCH (08:36)
[2020-06-02] MEDS: ZINC SULFATE PO SCH ×2 (08:36→20:47)
[2020-06-02] MEDS: DECADRON TAB PO SCH (08:36)
[2020-06-02] MEDS: ZOLOFT PO SCH (08:37)
[2020-06-02] MEDS: LOVENOX INJ 30 MG SYR SC SCH ×2 (08:37→20:51)
[2020-06-02] MEDS: ASPIRIN EC 81 MG PO SCH (08:37)
[2020-06-02] MEDS: THIAMINE HCL INJ IM SCH ×2 (08:38→20:47)
[2020-06-02] MEDS ORDERED: NS 100 ML IV 100 ML IV ONE ×2 (12:03→17:03)
[2020-06-02 16:26] LABS: BASOPHILS % (AUTO) 0.1 % (0.2-1.0); HEMATOCRIT 30.9 % (42.0-54.0); HEMOGLOBIN 10.2 g/dL (13.5-18.0); LYMPHOCYTES # (AUTO) 0.5 X10^3/uL (1.3-2.9); LYMPHOCYTES % (AUTO) 4.3 % (21.0-51.0); MEAN CORPUSCULAR HEMOGLOBIN 32.9 pg (27.0-34.0); MEAN CORPUSCULAR VOLUME 99.6 fL (80.0-100.0); MEAN PLATELET VOLUME 9.2 fL (7.4-11.0); MONOCYTES # (AUTO) 0.4 x10^3/uL (0.3-0.8); MONOCYTES % (AUTO) 3.5 % (0.0-13.0); NEUTROPHILS # (AUTO) 10.5 x10^3/uL (2.2-4.8); NEUTROPHILS % (AUTO) 92.1 % (42.0-75.0); PLATELET COUNT 200 X10^3/uL (150.0-450.0); RED BLOOD COUNT 3.11 X10^6/uL (4.7-6.0); RED CELL DISTRIBUTION WIDTH 16.3 % (11.6-16.5)
[2020-06-02 16:27] LABS: WHITE BLOOD COUNT 12.4 X10^3/uL (3.6-10.0)
[2020-06-02 16:31] LABS: BAND NEUTROPHILS % 2 % (0-10)
[2020-06-02 16:32] LABS: ALBUMIN 2.5 g/dL (3.4-5.0); CALCIUM 8.3 mg/dL (8.5-10.1); CARBON DIOXIDE 28.7 mmol/L (21-32); COR CA(FOR HYPOALB) 9.5 mg/dL (8.5-10.1); CREATININE 6.02 mg/dL (0.70-1.30); PLATELET MORPHOLOGY COMMENT NORMAL (NORMAL); TOTAL PROTEIN 6.1 g/dL (6.4-8.2)
[2020-06-02] MEDS ORDERED: ASCORBIC ACID INJ MULTI-DOSE VIAL ONE (17:04)
[2020-06-02] MEDS: NS 1000 ML 1,000 ML IV SCH (20:50)
[2020-06-03] MEDS: REMDESIVIR (INVESTIGATIONAL DRUG GS-5734) 100 MG in NS 250 ML IV 250 ML IV SCH (00:07)
[2020-06-03] MEDS ORDERED: NS 100 ML IV 100 ML IV ONE ×2 (00:27→04:44)
[2020-06-03] MEDS: ASCORBIC ACID INJ MULTI-DOSE VIAL IV SCH ×3 (00:32→12:02)
[2020-06-03] MEDS: CATAPRES TAB 0.1 MG PO PRN (01:30)
[2020-06-03] MEDS: DUONEB 0.5 MG/3 MG (3 mL) NEB PRN (05:45)
[2020-06-03 05:52] LABS: BASOPHILS # (AUTO) 0.2 X10^3/uL (0.0-0.1); BASOPHILS % (AUTO) 1.3 % (0.2-1.0); HEMATOCRIT 31.3 % (42.0-54.0); HEMOGLOBIN 10.6 g/dL (13.5-18.0); LYMPHOCYTES # (AUTO) 1.4 X10^3/uL (1.3-2.9); LYMPHOCYTES % (AUTO) 10.1 % (21.0-51.0); MEAN CORPUSCULAR HEMOGLOBIN 34.1 pg (27.0-34.0); MEAN CORPUSCULAR HGB CONC 33.8 g/dL (33.0-35.0); MEAN CORPUSCULAR VOLUME 100.6 fL (80.0-100.0); MEAN PLATELET VOLUME 8.8 fL (7.4-11.0); NEUTROPHILS # (AUTO) 11.1 x10^3/uL (2.2-4.8); NEUTROPHILS % (AUTO) 81.6 % (42.0-75.0); PLATELET COUNT 266 X10^3/uL (150.0-450.0); RED BLOOD COUNT 3.11 X10^6/uL (4.7-6.0); RED CELL DISTRIBUTION WIDTH 16.6 % (11.6-16.5); WHITE BLOOD COUNT 13.6 X10^3/uL (3.6-10.0)
[2020-06-03 05:57] LABS: ALBUMIN 2.8 g/dL (3.4-5.0); CALCIUM 8.4 mg/dL (8.5-10.1); CARBON DIOXIDE 24.7 mmol/L (21-32); COR CA(FOR HYPOALB) 9.4 mg/dL (8.5-10.1); CREATININE 6.51 mg/dL (0.70-1.30); TOTAL PROTEIN 6.2 g/dL (6.4-8.2)
[2020-06-03] MEDS: LANTHANUM 1000 MG PO SCH ×2 (06:03→12:03)
[2020-06-03 08:23] VITALS: BP 113/55
[2020-06-03] MEDS: DECADRON TAB PO SCH (08:56)
[2020-06-03] MEDS: ZOLOFT PO SCH (08:56)
[2020-06-03] MEDS: ASPIRIN EC 81 MG PO SCH (08:57)
[2020-06-03] MEDS: VITAMIN A PO SCH (08:57)
[2020-06-03] MEDS: NORVASC TAB 10 MG PO SCH (08:58)
[2020-06-03] MEDS: ZINC SULFATE PO SCH (08:58)
[2020-06-03] MEDS: THIAMINE HCL INJ IM SCH (08:59)
[2020-06-03] MEDS: LOVENOX INJ 30 MG SYR SC SCH (08:59)
== END 2020-06-03 12:00 | disposition home or self-care (01) | DRG 177 ==
LOC: ER 16:07 → ICU 20:58
PROVIDERS: ADMIT Obstetrics & Gynecology Obstetrics; ATTEND Obstetrics & Gynecology Obstetrics
CPT/HCPCS: 36415; 36600; 71010; 71045; 80053; 82803; 83605; 83735; 83880; 85025; 86738; 87040; 87400; 87635; 87804; 93005; 94640; 96365; 96374; 99284; A4222; J1100; J1650; J3411; J7030; J7050; J7620; J8540